=== PATIENT | female | born 1965 ===

== ENCOUNTER 2016-08-21 23:00 | Emergency (ER) | payer OTHER ==
[2016-08-21] MEDS ORDERED: ONDANSETRON ODT 8 MG TAB.RAPDIS PO ONE (23:30)
--- NOTE | 2016-08-21 23:54 | ER PHYSICIAN DOCUMENTATION ---
Physician Documentation [facility] Name:Jimbo Franks Age:51 yrs Sex:Female :1965 Arrival Date:08/21/2016 Time:23:00 Bed3 Private MD:Physician, No ED Frederic Wiley Disposition: 08/23 07:14 Chart complete. tl1 Disposition: 08/21/16 23:36 Discharged to Home/Self Care. Impression: Marijuana Abuse, Vomiting. - Condition is Good. - Discharge Instructions: MARIJUANA ABUSE, VOMITING (5y-Adult). - Prescriptions for Zofran 4 mg Oral Tablet - take 1-2 tablet by ORAL route every 4-6 hours As needed; 10 tablet. - Medical Reconciliation form form. - Follow up: Private Physician; When: 2 - 3 days; Reason: Recheck today's complaints, Continuance of care. - Problem is new. - Symptoms have improved. HPI: 08/21 23:04 This 51 yrs old /[place] Female presents to ER with complaints of tl1 Dizziness, Nausea/Vomiting. 23:05 She is here, visiting with a friend, from [place], [place]. She has been well. At about 1900 tl1 she drank some "tea" made with marijuana. About 2 hours later she began to feel ill, with generalized weakness, lightheadedness on standing, nausea and several episodes of vomiting. She says she has never before used marijuana. She denies any other recreational drug use or alcohol. No fever, abdominal pain, chest pain or shortness of breath. No h/a or focal neurological symptoms.. Historical: - Allergies: SHELLFISH; - Home Meds: 1. None - PMHx: None; - PSHx: oopherectomy; - Tetanus: < 10 years. - Ebola Screening: : Patient negative for fever greater than or equal to 101.5 degrees Fahrenheit, and additional compatible Ebola Virus Disease symptoms. Patient denies exposure to infectious person. Patient denies travel to an Ebola-affected area in the 21 days before illness onset. No symptoms or risks identified at this time. . - Immunization history: Flu Vaccine < 1 year. - Social history: Smoking status: Patient states was never smoker of tobacco. Patient uses alcohol occasionally. tried marijuana for first time today. ROS: 23:05 Constitutional: Positive for fatigue, malaise, Negative for chills, fever. tl1 23:05 Cardiovascular: Negative for chest pain, palpitations. 23:05 Respiratory: Negative for cough, shortness of breath, wheezing. 23:05 Abdomen/GI: Positive for nausea, vomiting, Negative for abdominal pain, diarrhea, constipation, abdominal cramps, abdominal distension, hematemesis, black/tarry stool, rectal bleeding. 23:05 Back: 23:05 : Negative for urinary symptoms, pelvic pain, chance of . 23:05 Neuro: Positive for dizziness, weakness, Negative for altered mental status, headache, near syncope, visual changes. 23:05 All other systems are negative. Exam: 23:05 Constitutional: The patient appears alert, awake, non-toxic, well developed, well tl1 hydrated, well groomed, well nourished, uncomfortable, fatigued 23:05 Head/face: Exam is negative for acute changes. 23:05 Eyes: Periorbital structures: appear normal, Pupils: equal, round, and reactive to light and accomodation, right pupil is approximately 3 mm(s), left pupil is approximately 3 mm(s). 23:05 ENT: Mouth: Oral mucosa: pink and intact, moist, Posterior pharynx: is normal. 23:05 Neck: ROM/movement: is normal, is supple, Lymph nodes: no appreciated lymphadenopathy. 23:05 Cardiovascular: Rate: normal, Rhythm: regular, Heart sounds: normal. 23:05 Respiratory: the patient does not display signs of respiratory distress, Respirations: normal. 23:05 Abdomen/GI: Inspection: abdomen appears normal, Palpation: abdomen is soft and non-tender. 23:05 Skin: Exam negative for acute changes. 23:05 Neuro: Orientation: is normal, Mentation: is normal, Memory: is normal, Cranial nerves: grossly normal, Cerebellar function: not tested, Motor: moves all fours, Gait: is steady. Vital Signs: 23:26 BP 132 / 80; Pulse 64; Resp 16; Temp 97.5; Pulse Ox 93% ; Pain 4/10; sj 23:52 Pulse Ox 95% on R/A; mk2 MDM: 23:04 Patient medically screened. tl1 23:40 Differential diagnosis: marijuana intoxication, other drug ingestion, altitude tl1 illness,viral illness, early GI problem. Doubt worrisome MOLDER SHOULDER PAD, CV or GI pathology at this time.. Data reviewed: vital signs, nurses notes, and as a result, I will discharge patient. Test interpretation: by ED physician or midlevel provider:. Counseling: I had a detailed discussion with the patient and/or guardian regarding: the historical points, exam findings, and any diagnostic results supporting the discharge/admit diagnosis, the need for outpatient follow up, to return to the emergency department if symptoms worsen or persist or if there are any questions or concerns that arise at home. Response to treatment: the patient's symptoms have mildly improved after treatment, and as a result, I will discharge patient. Special discussion: That these symptoms are very likely to be related to marijuana, though it is difficult to definitively exclude a more serious problem very early in it's course. I think any lab or radiographic testing will be very low yield at this time. I think it is safe for her to go back to her hotel, and return for any worsening.. Dispensed Medications: 23:19 Drug: Zofran 8 mg; Route: PO; mk2 23:30 Follow up: Response: No adverse reaction mk2 Signatures: Felisa Jose, RN RN mk2 Frederic Sierra MD MD tl1 Taylor Poon
--- NOTE | 2016-08-21 23:54 | ER NURSING DOCUMENTATION ---
Nurse's Notes [facility] Name:Jimbo Franks Age:51 yrs Sex:Female :1965 Arrival Date:08/21/2016 Time:23:00 Bed3 Private MD:Physician, No Diagnosis:Marijuana Abuse;Vomiting Presentation: 08/21 23:13 Acuity: JOSE 3 mk2 23:20 Presenting complaint: Significant other states: ate fish tacos for dinner, felt sj immediately gaseous afterward, ate fruit and salt, took marijuana and vomited x1 15 minutes prior to arrival. Denies diarrhea. Transition of care: Home. Notified ED Physician of patient's arrival and CC Dr. Sierra notified. 23:20 Method Of Arrival: Private Vehicle Triage Assessment: 23:23 General: Appears ill, Behavior is listless. Pain: Complains of pain in abdomen. Neuro: sj Level of Consciousness is listless, obeys commands. Cardiovascular: Capillary refill < 3 seconds. Respiratory: Respiratory effort is even, unlabored, Respiratory pattern is regular. GI: Abdomen is flat, non- distended Bowel sounds present X 4 quads. Reports bloating, vomiting. GI: Denies diarrhea. Historical: - Allergies: SHELLFISH; - Home Meds: 1. None - PMHx: None; - PSHx: oopherectomy; - Tetanus: < 10 years. - Ebola Screening: : Patient negative for fever greater than or equal to 101.5 degrees Fahrenheit, and additional compatible Ebola Virus Disease symptoms. Patient denies exposure to infectious person. Patient denies travel to an Ebola-affected area in the 21 days before illness onset. No symptoms or risks identified at this time. . - Immunization history: Flu Vaccine < 1 year. - Social history: Smoking status: Patient states was never smoker of tobacco. Patient uses alcohol occasionally. tried marijuana for first time today. Screenin:27 Infectious Disease Risk None. Abuse screen: Denies threats or abuse. Denies injuries sj from another. Nutritional screening: No deficits noted. Assessment: 23:27 See Triage Assessment done by same RN. sj Vital Signs: 23:26 BP 132 / 80; Pulse 64; Resp 16; Temp 97.5; Pulse Ox 93% ; Pain 4/10; sj 23:52 Pulse Ox 95% on R/A; mk2 ED Course: 23:01 Patient arrived in ED. ma1 23:02 Physician, No is Private Physician. ma1 23:04 Frederic Sierra MD is Attending Physician. tl1 23:13 Triage completed. mk2 23:19 Pt appears sleepy. Emergency Room Orderly states they drank cannabis tea for the first time. mk2 23:20 Taylor Poon is Primary Nurse. 23:27 Valuables Given to family. Patient has correct armband on for positive identification. sj Bed in low position. Call light in reach. Side rails up X 1. Lights dimmed. Warm blanket given. 23:30 Report received from Papi Vazquez mk2 Administered Medications: 23:19 Drug: Zofran 8 mg; Route: PO; mk2 23:30 Follow up: Response: No adverse reaction mk2 Outcome: 23:36 Discharge ordered by . tl1 23:52 Discharged to home ambulatory. mk2 23:52 Condition: improved 23:52 Discharge instructions given to patient, Instructed on discharge instructions, follow up and referral plans. medication usage, Prescriptions given X 1. 23:53 Patient left the ED. mk2 Signatures: Felisa Jose, RN RN mk2 Frederic Sierra MD MD tl1 Taylor Poon [facility]
== END 2016-08-21 23:54 | disposition home or self-care (01) ==
LOC: EEVIPCON 23:00 → ER 23:00
DX: F12.10 Cannabis abuse, uncomplicated (principal); R11.2 Nausea with vomiting, unspecified; R53.83 Other fatigue; R53.81 Other malaise; R42 Dizziness and giddiness; R53.1 Weakness
CPT/HCPCS: 99283